=== PATIENT | female | born 1990 | race Caucasian/White ===

== ENCOUNTER 2016-10-28 17:12 | Outpatient (CLI) | payer MEDICAID, OTHER | END 2016-10-28 17:13 | disposition home or self-care (01) | LOC: MADLAB 17:12 | PROVIDERS: ATTEND Specialist | DX: E07.9 Disorder of thyroid, unspecified (principal) | CPT/HCPCS: 36415; 84443 ==

== ENCOUNTER 2016-10-31 14:20 | Outpatient (CLI) | payer MEDICAID, OTHER ==
[2016-10-31 15:06] LABS: Amphetamine Not Detected (NotDetected); Barbiturates Screen Not Detected (NotDetected); Benzodiazepine Screen Not Detected (NotDetected); Cocaine Metabolite Screen Not Detected (NotDetected); Medtox Control Line Valid? VALID (VALID); Methadone Not Detected (NotDetected); Methamphetamine Not Detected (NotDetected); Opiate Screen Not Detected (NotDetected); Oxycodone Screen Not Detected (NotDetected); Phencyclidine (PCP) Not Detected (NotDetected); THC/Cannabinoid Screen Not Detected (NotDetected); Tricyclic Screen Not Detected (NotDetected)
[2016-11-02 16:15] LABS: GC by PCR Not Detected (NotDetected)
[2016-11-02 16:16] LABS: Chlamydia by PCR DETECTED (NotDetected)
== END 2016-10-31 14:21 | disposition home or self-care (01) ==
LOC: MADLABBHPM 14:20
PROVIDERS: ATTEND Family Medicine
DX: O09.891 Supervision of other high risk pregnancies, first trimester (principal)
CPT/HCPCS: 36415; 80306; 87086; 87491; 87591

== ENCOUNTER 2016-12-26 10:51 | Outpatient (CLI) | payer MEDICAID, OTHER ==
[2016-12-26 12:15] LABS: Free T4 (Free Thyroxine) 0.99 ng/dL (0.70-1.48)
== END 2016-12-26 10:52 | disposition home or self-care (01) ==
LOC: MADLABBHPM 10:51
PROVIDERS: ATTEND Family Medicine
DX: O09.892 Supervision of other high risk pregnancies, second trimester (principal)
CPT/HCPCS: 36415; 82105; 82677; 84439; 84443; 84702; 86336

== ENCOUNTER 2017-01-23 15:22 | Outpatient (CLI) | payer OTHER ==
[2017-01-26 22:20] LABS: Chlamydia by PCR Not Detected (NotDetected)
== END 2017-01-23 15:23 | disposition home or self-care (01) ==
LOC: MADLABBHPM 15:22
PROVIDERS: ATTEND Family Medicine
DX: O09.892 Supervision of other high risk pregnancies, second trimester (principal)
CPT/HCPCS: 87491

== ENCOUNTER 2017-03-25 15:33 | Outpatient (CLI) | payer OTHER ==
[2017-03-25 16:56] LABS: #Eosinphils 0.1 thou/uL (0.0-0.7); #Lymphocytes 1.8 thou/uL (1.20-3.40); #Monocytes 0.7 thou/uL (0.11-0.59); #Neutrophils 7.9 thou/uL (1.40-6.50); %Basophils 0.3 % (0.0-1.0); %Eosinophils 0.7 % (0.0-10.0); %Monocytes 6.7 % (0.0-10.0); %Neutrophils 75.4 % (42.0-75.0); Hemoglobin 12.9 g/dL (12.0-16.0); Mean Corpuscular HGB CONC 33.2 g/dL (32.0-36.0); Mean Corpuscular Hemoglobin 30.2 pg (27.0-31.0); Mean Platelet Volume 8.5 fL (7.4-10.4); Platelet Count 176 thou/uL (130-400); RBC Distribution Width 11.6 % (11.5-14.5); Red Blood Cell (RBC) Count 4.27 mill/uL (4.20-5.40); White Blood Cell (WBC) Count 10.5 thou/uL (4.8-10.8)
[2017-03-25 19:21] LABS: Thyroid Stimulating Hormone 0.7678 uIU/mL (0.35-4.94)
[2017-03-26 17:10] LABS: HIV (1/2) Antibody/Antigen Non-Reactive (NonReactive); HIV 1/2 INDEX 0.13 S/CO (<1.00)
== END 2017-03-25 15:34 | disposition home or self-care (01) ==
LOC: MADLABBHPM 15:33
PROVIDERS: ATTEND Family Medicine
DX: O99.283 Endocrine, nutritional and metabolic diseases complicating pregnancy, third trimester (principal)
CPT/HCPCS: 36415; 82950; 84439; 84443; 84481; 85025; 86592; 87389

== ENCOUNTER 2017-05-15 23:08 | Outpatient (CLI) | payer OTHER | END 2017-05-15 23:09 | disposition home or self-care (01) | LOC: MADLABBHPM 23:08 | PROVIDERS: ATTEND Family Medicine | DX: O99.283 Endocrine, nutritional and metabolic diseases complicating pregnancy, third trimester (principal) | CPT/HCPCS: 87081 ==